=== PATIENT | female | born 1935 | race Hispanic/Latino ===

== ENCOUNTER 2017-01-04 17:40 | Emergency (ER) | payer MEDICARE, OTHER ==
--- NOTE | 2017-01-04 19:22 | Emergency Department Report ---
ED Fall HPI - General Chief Complaint: Fall Stated Complaint: LEFT SHOULDER PAIN Time Seen by Provider: 01/04/17 19:08 Source: patient, EMS Mode of arrival: Stretcher - History of Present Illness Initial Comments: Patient is a 81 years old female history of hypertension and arthritis she stated that she tripped and fell on the left side hit her left shoulder and left wrist and left knee. Patient denied any loss of consciousness or head injury no neck pain. Patient denied any symptoms prior to the fall. Currently patient denied any weakness numbness or tingling sensation no bowel or bladder incontinence. MD Complaint: fall -: Sudden Fall From: standing When Fall Occurred: just prior to arrival Fall Witnessed: yes, by family Place Fall Occurred: home Loss of Consciousness: none Prolonged Down Time?: no Symptoms Prior to Fall: none Location - Extremities: Left: Shoulder, Forearm, Knee Severity scale (0 -10): 8 Quality: sharp Context: tripped/slipped Associated Symptoms: denies. denies: headache, neck pain, numbness, weakness, chest paint, shortness of breath, abdominal pain, hematuria, unable to walk, lightheaded, vertigo, confusion - Related Data Previous Rx's Medication Instructions Recorded Last Taken Type Ondansetron [Zofran Odt] 4 mg PO Q8HR PRN #14 tab.rapdis 01/04/17 Unknown Rx oxyCODONE /ACETAMINOPHEN [Percocet 1 tab PO Q6HR PRN #14 tablet 01/04/17 Unknown Rx 5/325] Allergies Allergy/AdvReac Type Severity Reaction Status Date / Time aspirin Allergy Nausea Verified 01/04/17 18:23 ED Review of Systems ROS: Stated complaint: LEFT SHOULDER PAIN Other details as noted in HPI Comment: All other systems reviewed and negative Constitutional: denies: chills, fever Respiratory: denies: cough, shortness of breath, SOB with exertion, SOB at rest Cardiovascular: denies: chest pain Gastrointestinal: denies: abdominal pain, nausea, vomiting, diarrhea Genitourinary: denies: urgency Neurological: denies: headache, weakness ED Past Medical Hx - Past Medical History Hx Hypertension: Yes Hx Arthritis: Yes (Osteoarthritis) Additional medical history: Vertigo - Surgical History Additional Surgical History: colon resection; right shoulder repair - Social History Smoking Status: Never Smoker Substance Use Type: None - Medications Home Medications: Home Medications Medication Instructions Recorded Confirmed Last Taken Type Ondansetron [Zofran Odt] 4 mg PO Q8HR PRN #14 tab.rapdis 01/04/17 Unknown Rx oxyCODONE /ACETAMINOPHEN [Percocet 1 tab PO Q6HR PRN #14 tablet 01/04/17 Unknown Rx 5/325] ED Physical Exam - General Limitations: No Limitations General appearance: in distress (due to pain) - Head Head exam: Present: atraumatic, normocephalic - Eye Eye exam: Present: normal appearance, PERRL, EOMI Pupils: Present: normal accommodation - ENT ENT exam: Present: normal exam, normal orophraynx, mucous membranes moist, TM's normal bilaterally, normal external ear exam - Neck Neck exam: Present: normal inspection, full ROM. Absent: tenderness, meningismus, lymphadenopathy, thyromegaly - Respiratory Respiratory exam: Present: normal lung sounds bilaterally. Absent: respiratory distress, wheezes, rales, rhonchi, stridor, chest wall tenderness, accessory muscle use, decreased breath sounds - Cardiovascular Cardiovascular Exam: Present: tachycardia. Absent: systolic murmur, diastolic murmur - GI/Abdominal GI/Abdominal exam: Present: soft, normal bowel sounds. Absent: distended, tenderness, guarding, rebound, rigid, mass, bruit, pulsatile mass, hernia - Expanded Upper Extremity Exam Left Shoulder Exam: Present: tenderness. Absent: swelling, abrasion, laceration, ecchymosis, deformity, crepidus, erythema Upper Arm exam: Present: normal inspection, full ROM. Absent: tenderness Elbow exam: Present: normal inspection, full ROM. Absent: tenderness Forearm Wrist exam: Present: tenderness (just above the wrist) Hand Wrist exam: Present: normal inspection. Absent: tenderness, swelling - Back Exam Back exam: Present: normal inspection, full ROM. Absent: tenderness, CVA tenderness (R), CVA tenderness (L), muscle spasm, paraspinal tenderness, vertebral tenderness - Neurological Exam Neurological exam: Present: alert, oriented X3 - Skin Skin exam: Present: warm, intact, normal color ED Course Vital Signs 01/04/17 01/04/17 18:23 19:30 Temperature 98.3 F Pulse Rate 101 H Respiratory 20 20 Rate Blood Pressure 151/75 O2 Sat by Pulse 96 Oximetry - Reevaluation(s) Reevaluation #1: 01/04/17 21:40 Patient stated that her pain is improved. Discussed with Dr. James I read to him the report from the radiologist about the left shoulder, he advised with an arm sling and advised the patient to follow with him in his office. On exam patient neurovascularly is intact. - Orthopedic Splinting/Casting Injury #1 Side: left Upper Extremity Injury Location: upper arm Upper Extremity Immobilizer: sling/shoulder immobilize ED Medical Decision Making - Radiology Data Radiology results: report reviewed Left humerus tuberosity fracture mildly displaced. Critical care attestation.: If time is entered above; I have spent that time in minutes in the direct care of this critically ill patient, excluding procedure time. ED Disposition Clinical Impression: Humeral head fracture Disposition: - TO HOME OR SELFCARE Is pt being admited?: No Condition: Stable Instructions: Arm Fracture in Adults (ED) Referrals: JOSHUA JAMES MD [Staff Physician] - 3-5 Days
[2017-01-04] MEDS ORDERED: MORPHINE IV ONE (19:24)
[2017-01-04] MEDS ORDERED: ZOFRAN IV ONE (19:24)
[2017-01-04] MEDS ORDERED: NACL 0.9% 1000 ML 1,000 ML IV ONE (19:24)
--- NOTE | 2017-01-04 21:22 | XRay Report ---
FINAL REPORT PROCEDURE: XR SHOULDER 2+V LT TECHNIQUE: Left shoulder, two views HISTORY: fall; left shoulder pain COMPARISON: No prior studies are available for comparison. FINDINGS: There is a fracture of the proximal left humerus through the greater tuberosity. There is mild displacement. Glenohumeral joint appears intact. Acromioclavicular joint appears intact. IMPRESSION: Fracture through the greater tuberosity of the proximal left humerus
[2017-01-04 22:30] VITALS: BP 140/72
--- NOTE | 2017-01-05 08:25 | XRay Report ---
XRAY LEFT KNEE 2 VIEWS: 01/04/17 17:40:00 CLINICAL: Pain. FINDINGS: Mild osteopenia. No fracture or dislocation. The joint spaces are normal. Normal soft tissues. No joint effusion. IMPRESSION: Mild osteopenia but otherwise normal.
--- NOTE | 2017-01-05 08:26 | XRay Report ---
XRAY LEFT WRIST 2 VIEWS:01/04/17 17:40:00 CLINICAL: Fall and wrist pain. FINDINGS: Diffuse osteopenia. The carpal bones are intact with no fracture or dislocation. Radiocarpal joint space narrowing and sclerosis of the distal radius. Deformity of the distal radius suggests an old remote healed fracture. No acute fracture. Normal soft tissues. IMPRESSION: No acute fracture or dislocation. Remote healed fracture of the distal radius. Radiocarpal joint arthritis.
== END 2017-01-04 22:33 | disposition home or self-care (01) ==
LOC: ED 17:40
DX: S42.202A Unspecified fracture of upper end of left humerus, initial encounter for closed fracture (principal); W18.30XA Fall on same level, unspecified, initial encounter; Y93.9 Activity, unspecified; Y92.9 Unspecified place or not applicable; Y99.9 Unspecified external cause status
CPT/HCPCS: 73030; 73100; 73560; 96361; 96374; 96375; 99284; J2270; J2405; J7030